=== PATIENT | male | born 1940 | race Two or more races ===

== ENCOUNTER 2020-01-03 20:44 | Inpatient (IN) | payer MEDICARE, OTHER ==
[~2020-01-03] VITALS: Ht 175.3 cm; Wt 67.1 kg
[2020-01-03] MEDS ORDERED: IV NS 0.9% 1,000 ML BAG IV ONE (21:00)
[2020-01-03] MEDS ORDERED: VANCOMYCIN 1 GM in IV D5W 250 ML IV ONE (21:00)
[2020-01-03] MEDS ORDERED: ACETAMINOPHEN 650 MG/SUPP.RECT RC ONE ×2 (21:00→21:19)
[2020-01-03] MEDS ORDERED: MEROPENEM 1,000 MG in IV NS 0.9% 100 ML IV ONE (21:00)
[2020-01-03] MEDS ORDERED: VANCOMYCIN 1 GM VIAL ONE (21:18)
[2020-01-03] MEDS ORDERED: MEROPENEM 1 G VIAL IV ONE (21:18)
[2020-01-03] MEDS ORDERED: ACETAMINOPHEN 325 MG TABLET ONE (21:19)
--- NOTE | 2020-01-03 21:45 | NUR ---
PT [id number]. ALTERED MENTAL STATUS, LETHARGIC, REPORTED DESAT, TACHYPNEIC. 86% ON RA. PT PLACED ON NON REBREATHER MASK 15 L SATTING AT 99%. PT AWAKE, UNABLE TO FOLLOW COMMANDS, NO ACUTE DISTRESS NOTED AT THIS TIME. PT CONNECTED TO HIGH WORKER AND POX
[2020-01-03 21:52] LABS: APPEARANCE,URINE CLOUDY (CLEAR)
[2020-01-03 21:53] LABS: BLOOD, URINE 3+ Ery/uL (NEGATIVE); PH,URINE >8.5 (5.0-8.0); PROTEIN,URINE 3+ mg/dl (NEGATIVE); UGLUCOSE 100 MG/DL mg/dL (NEGATIVE)
[2020-01-03 21:54] LABS: BILIRUBIN,URINE 2+ (NEGATIVE); KETONES,URINE TRACE (NEGATIVE)
[2020-01-03 21:55] LABS: LEUKOCYTE ESTERASE ,URINE 2+ (NEGATIVE); NITRITE, URINE POSITIVE (NEGATIVE); UROBILINOGEN,URINE >8.0 EU/dL (0.2)
[2020-01-03 21:57] LABS: COLOR,URINE RED (YELLOW)
--- NOTE | 2020-01-03 22:00 | NUR ---
CHAPA CATHETER PLACED. URINE COLELCTED AND SENT TO LAB
[2020-01-03 22:01] LABS: BASOPHILS % (AUTO) 0.2 % (0.0-2.0); CALCIUM, SERUM 10.5 mg/dL (8.5-10.1); CARBON DIOXIDE 26 mmol/L (21-32); CHLORIDE 119 mmol/L (98-107); CREATININE 1.3 mg/dL (0.6-1.3); EOSINOPHILS % (AUTO) 0.1 % (0.0-6.0); GLUCOSE 230 mg/dL (74-106); HEMATOCRIT 49 % (39-51); LYMPHOCYTES # (AUTO) 0.5 /CMM (0.8-4.8); MEAN CORPUSCULAR HGB CONC 32 g/dl (31.0-36.0); MEAN CORPUSCULAR VOLUME 104 fL (80-96); MONOCYTES # (AUTO) 0.5 /CMM (0.1-1.30); NEUTROPHILS # (AUTO) 11.5 /CMM (1.8-8.9); NEUTROPHILS % (AUTO) 91.7 % (43.0-81.0); PLATELET COUNT (AUTO) 377 /CMM (150-450); POTASSIUM 4.2 mmol/L (3.5-5.1); RED BLOOD CELL COUNT(AUTO) 4.72 MIL/uL (4.5-6.0); UREA NITROGEN, BLOOD 18 mg/dL (7-18); WHITE BLOOD COUNT (AUTO) 12.6 K/uL (4.3-11.0)
[2020-01-03 22:03] LABS: SODIUM SERUM 157 mmol/L (136-145)
[2020-01-03 22:06] LABS: BACTERIA,URINE None seen /HPF (None Seen); SPERM,URINE Few /HPF (None Seen); SQUAMOUS EPITHELIAL CELL,UR 0-2 /HPF (None Seen)
[2020-01-03 22:08] LABS: BILIRUBIN,DIRECT 0.4 mg/dL (0.0-0.2)
[2020-01-03 22:09] LABS: ALANINE AMINOTRANSFERASE 24 U/L (12-78); ALBUMIN 2.4 g/dL (3.4-5.0); ALKALINE PHOSPHATASE 104 U/L (46-116); ASPARTATE AMINOTRANSFERASE 19 U/L (15-37); TOTAL PROTEIN, SERUM 8.8 g/dL (6.4-8.2)
[2020-01-03 22:11] LABS: HEMOGLOBIN 15.7 g/dL (13.5-17.5)
--- NOTE | 2020-01-03 22:33 | NUR ---
XRAY AT BEDSIDE
[2020-01-03 22:35] LABS: LYMPHOCYTES % (MANUAL) 2 % (16-48); MONOCYTES % (MANUAL) 2 % (0-11.0); NEUTROPHILS % (MANUAL) 96 (42-76)
[2020-01-04] VITALS (46 sets, daily range): BP systolic 82–142; BP diastolic 35–82
--- NOTE | 2020-01-04 00:24 | NUR ---
NORA COLON'S DAUGHTER
[2020-01-04] MEDS ORDERED: ZOLPIDEM TARTRATE 5 MG TABLET PO PRN (01:00)
[2020-01-04] MEDS ORDERED: HYDROCODONE/APAP 5/325MG 1 EACH TABLET PO PRN (01:00)
[2020-01-04] MEDS ORDERED: ONDANSETRON HCL/PF 4 MG/2 ML VIAL IVP PRN (01:00)
[2020-01-04] MEDS ORDERED: MAG HYDROX/AL HYDROX/SIMETH 30 ML UDC PO PRN (01:00)
[2020-01-04] MEDS ORDERED: MAGNESIUM HYDROXIDE 30 ML UDC PO PRN (01:00)
[2020-01-04] MEDS ORDERED: Z GUARD REMEDY 2 OZ OINT TP PRN (01:00)
--- NOTE | 2020-01-04 01:36 | NUR ---
PT TRANSFERRED TO ROOM IN STABLE CONDITION
[2020-01-04] MEDS: IV NS 0.9% 1,000 ML IV SCH ×2 (01:53→11:06)
[2020-01-04] MEDS ORDERED: PIPERACILLIN /TAZOBACTAM 3.375 G VIAL IV ONE (02:03)
[2020-01-04] MEDS: PIPERACILLIN /TAZOBACTAM 3.375 G in IV D5W 50 ML IV SCH ×2 (02:05→06:00)
[2020-01-04] MEDS ORDERED: GLUCERNA 1.2 1,000 ML BOTTLE NG PRN (03:30)
[2020-01-04 04:04] LABS: EOSINOPHILS % (AUTO) 0.1 % (0.0-6.0); LYMPHOCYTES # (AUTO) 0.7 /CMM (0.8-4.8); MONOCYTES # (AUTO) 0.6 /CMM (0.1-1.30)
[2020-01-04] MEDS ORDERED: POTA20TA83 GT (04:05)
[2020-01-04] MEDS ORDERED: DIGO125T GT (04:05)
[2020-01-04] MEDS ORDERED: CRAN425C6 GT (04:05)
[2020-01-04] MEDS ORDERED: BISA-79 RC (04:05)
[2020-01-04] MEDS ORDERED: NA P133E RC (04:05)
[2020-01-04] MEDS ORDERED: LEVE500T9 GT (04:05)
[2020-01-04] MEDS ORDERED: ACET-2605 GT (04:05)
[2020-01-04] MEDS ORDERED: SIMV-49 GT (04:05)
[2020-01-04] MEDS ORDERED: SITA50TA GT (04:05)
[2020-01-04] MEDS ORDERED: ASPI-605 GT (04:05)
[2020-01-04] MEDS ORDERED: SENN1TAB6 GT (04:05)
[2020-01-04] MEDS ORDERED: CHOL1CRY2 GT (04:05)
[2020-01-04] MEDS ORDERED: TAMS-12 GT (04:05)
[2020-01-04] MEDS ORDERED: TYL2T GT (04:05)
[2020-01-04] MEDS ORDERED: [UNRECOGNIZED DRUG - CODE] SQ (04:05)
[2020-01-04] MEDS ORDERED: MAGN24002 GT (04:05)
[2020-01-04] MEDS ORDERED: METO100T14 GT (04:05)
[2020-01-04] MEDS ORDERED: DOCU-141 GT (04:05)
[2020-01-04] MEDS ORDERED: FURO40TA5 GT (04:05)
--- NOTE | 2020-01-04 04:13 | NUR ---
MS/RN CALLED [facility], SPOKE TO MARYBETH HARGROVE, PER BEENA PATIENT'S GT FEEDING WAS WORKING OVER THERE AND THAT THEY WERE USING IT FOR TUBE FEEDING. PER BEENA SHE DOES NOT KNOW ABOUT VACCINATION STATUS OF THE PATIENT THE PATIENT WAS A NEW ADMIT TO THE FACILITY.
--- NOTE | 2020-01-04 04:15 | NUR ---
MS/RN GT FEEDING STARTED AFTER POSITIVE PLACEMENT WAS NOTED.
[2020-01-04 04:26] LABS: BASOPHILS # (AUTO) 0.1 /CMM (0.0-0.2); BASOPHILS % (AUTO) 0.4 % (0.0-2.0); HEMATOCRIT 30 % (39-51); HEMOGLOBIN 9.5 g/dL (13.5-17.5); LYMPHOCYTES % (AUTO) 5.1 % (20.0-44.0); MEAN CORPUSCULAR HGB CONC 32 g/dl (31.0-36.0); MEAN CORPUSCULAR VOLUME 104 fL (80-96); MONOCYTES % (AUTO) 4.9 % (2.0-12.0); NEUTROPHILS # (AUTO) 11.5 /CMM (1.8-8.9); NEUTROPHILS % (AUTO) 89.5 % (43.0-81.0); PLATELET COUNT (AUTO) 423 /CMM (150-450); RED BLOOD CELL COUNT(AUTO) 2.86 MIL/uL (4.5-6.0); WHITE BLOOD COUNT (AUTO) 12.9 K/uL (4.3-11.0)
[2020-01-04] MEDS ORDERED: MAG355OR18 GT (04:30)
[2020-01-04] MEDS ORDERED: CRAN3875 GT (04:30)
[2020-01-04] MEDS ORDERED: ASCO500T21 GT (04:30)
[2020-01-04] MEDS ORDERED: LEVA0.6320 IH (04:30)
[2020-01-04] MEDS ORDERED: MULT1TAB73 GT (04:30)
[2020-01-04] MEDS ORDERED: CALC-7 GT (04:30)
[2020-01-04 04:31] LABS: CALCIUM, SERUM 8.7 mg/dL (8.5-10.1); CARBON DIOXIDE 23 mmol/L (21-32); CHLORIDE 121 mmol/L (98-107); CREATININE 1.4 mg/dL (0.6-1.3); GLUCOSE 266 mg/dL (74-106); MAGNESIUM 2.1 mg/dL (1.8-2.4); PHOSPHORUS 2.2 mg/dL (2.5-4.9); POTASSIUM 3.7 mmol/L (3.5-5.1); UREA NITROGEN, BLOOD 18 mg/dL (7-18)
[2020-01-04 04:34] LABS: CHOLESTEROL 105 mg/dL (<200); HDL CHOLESTEROL 42 mg/dL (40-60); LDL 63 mg/dL (0-99); TRIGLYCERIDES 53 mg/dL (30-150)
[2020-01-04 04:36] LABS: SODIUM SERUM 158 mmol/L (136-145)
--- NOTE | 2020-01-04 05:43 | NUR ---
MS/RN AT 0130, [facility]. PATIENT APPEAR SLEEPING, AROUSABLE BY TACTILE STIMULATION, NON VERBALLY RESPONSIVE, TACHYPNEIC, BP 97/58, HR 105, RR 50, T 101.6, 94% ON 5L NC. MADE COMFORTABLE IN BED, BED BATH DONE. UNABLE TO OBTAIN INFORMATIONS FOR ADMISSION DUE TO PATIENT'S CONDITION. WILL MONITOR.
[2020-01-04] MEDS ORDERED: PIPERACILLIN /TAZOBACTAM 3.375 G in IV D5W 50 ML IV SCH (06:00)
[2020-01-04] MEDS: BLOOD SUGAR DIAGNOSTIC 1 EACH STRIP IN SCH ×4 (06:44→23:42)
--- NOTE | 2020-01-04 07:21 | NUR ---
MS/RN CALLED AND SPOKE TO DR. CRUZ ABOUT THE SEPSIS REASSESSMENT BP 97/658, HR 105, RR 50, T 101.6, O2 SAT 94% AT 5LPM O2, ALSO MENTIONED TO DR. CRUZ THE CRITICAL LABS, NS 158, TROP 0.133, LACTIC ACID 3.9, AND THE LATEST VITAL SIGNS BP 94/54, HR 105, RR 50, T 98.4, O2 SAT 94% AT 5LPM O2. NOR ORDERS RECEIVED. PRESENTLY, PATIENT STILL SLEEPING, APPEAR COMFORTABLE, NO SIGNS OF DISTRESS NOTED, GT FEEDING INFUSING HOB ELEVATED, IVF INFUSING, ALL NEEDS ATTENDED AT THIS TIME, ENDORSED TO NEXT RN FOR YAZMIN.
--- NOTE | 2020-01-04 07:35 | NUR ---
MS/RN CHRIS WAS TOO EARLY AT 0600, DID NOT ADMIN, ENDORSED TO NEXT RN TO F/U WITH THE PHARMACY TO CHANGE ADMIN TIMES.
[2020-01-04] MEDS ORDERED: LEVE100S GT (07:46)
--- NOTE | 2020-01-04 07:50 | NUR ---
MS RN OPENING NOTE PATIENT IN BED RESTING COMFORTABLY. PATIENT BREATHING IS EVEN BUT LABORED. BP IS 87/40, HR 87, TEMPERATURE 100.5, RESPIRATIONS 40-50. NOTIFIED DANIELLE CELESTIN. HOB IS ELEVATED. PATIENT ON OXYGEN NC 5L SATURATING AT 94% SPO2. SAFETY PRECAUTIONS IN PLACE. CHAPA CATHETER HANGING TO GRAVITY DRAINING CLEAR YELLOW FLUID. PATIENT BED IS LOCKED AND IN LOWEST POSITION. CALL LIGHT WITHIN REACH. WILL CONTINUE TO MONITOR.
[2020-01-04] MEDS ORDERED: INSU100V39 SQ ×2 (07:51)
--- NOTE | 2020-01-04 08:10 | NUR ---
MS RN NOTE PATIENT ZOSYN WAS SCHEDULED FOR 0600 AND WAS NONADMIN. PER PAULETTE IN PHARMACY NON ADMIN 0600 ZOSYN AND GIVE 0900 EXTENDED ZOSYN.
[2020-01-04] MEDS ORDERED: IV NS 0.9% 250 ML IV ONE (08:30)
--- NOTE | 2020-01-04 08:30 | NUR ---
MS RN NOTE ORDERS FROM DANIELLE CELESTIN FOR 500 ML NS AND STAT ABGS. WILL CARRY OUT AND FOLLOW THROUGH. DANIELLE MADE AWARE OF LACTIC ACID AND SODIUM LEVELS HIGH. WILL CONTINUE TO MONITOR.
[2020-01-04] MEDS: ACETAMINOPHEN 325 MG TABLET PO PRN ×2 (08:42→16:05)
[2020-01-04] MEDS ORDERED: IV NS 0.9% 500 ML IV ONE (09:00)
--- NOTE | 2020-01-04 09:43 | NUR ---
WOUND CARE CONSULT: PT PRESENTS WITH SCARRING TO SACRAL AREA AND RT SHOULDER, LEFT ANTERIOR THIGH, PRESENT ON ADMISSION. RECOMMENDATIONS MADE FOR SKIN PROTECTION. DISCUSSED WITH NURSING STAFF. FIRST STEP LOW AIRLOSS MATTRESS ON ORDER. WILL SEE PRN. CURRENT DAFNE SCORE IS 12. Addendum: 01/04/20 at 0944 by YEYO ROBLEDO WNDNU Amended: Links added.
[2020-01-04] MEDS: PIPERACILLIN /TAZOBACTAM 3.375 G in IV D5W 100 ML IV SCH ×2 (09:47→17:05)
[2020-01-04 10:00] LABS: ABG BASE EXCESS -5.4 mmol/L; ABG OXYGEN SATURATION 92.8 % (92.0-98.5); ABG PCO2 26.1 mmHg (35.0-45.0); ABG PH 7.437 (7.350-7.450); ABG PO2 65.8 mmHg (75.0-100.0); AaDO2 189.4 mmHg; COHb 0.3 % (0.5-1.5); MetHb 0.4 % (0.0-1.5); O2Hb 92.2 % (94.0-97.0); SITE, ABG Right Radial; VENT MODE, BG NASAL CANNULA
--- NOTE | 2020-01-04 10:09 | NUR ---
MS RN NOTE PATIENT BLOOD PRESSURE 104/58, HR 91. ORDERS FROM DANIELLE CELESTIN TO HAVE PATIENT ON TELE MONITORING. PATIENT READING IS AFIB. WILL CONTINUE TO MONITOR. Addendum: 01/04/20 at 1013 by PRITESH MARTINES RN TEMPERATURE 99.3, TYLENOL WAS ALREADY GIVEN.
--- NOTE | 2020-01-04 11:25 | NUR ---
FORMULA CHECKER NOTE PATIENT IN BED RESTING COMFORTABLY. PATIENT WITH LABORED BREATHING, RESPIRATIONS ARE AT 40 PER MINUTE. PATIENT BP 114/59 AND PATIENT ON CARDIAC MONITORING READING AFIB HR 107. ORDERS FROM DR. GA TO TRANSFER TO ICU. REPORT GIVEN TO BUSINESS TECHNOLOGY ANALYST SANI. DANIELLE CELESTIN MADE AWARE OF PLAN OF CARE AND TRANSFER. DAUGHTER AT THE BEDSIDE. DAUGHTER INFORMED AND MADE WELL AWARE OF PLAN OF CARE. PATIENT CHAPA CATHETER HANGING TO GRAVITY, DRAINING CLEAR YELLOW URINE. PATIENT GTUBE PATENT AND INTACT. PATIENT KEPT CLEAN, DRY AND COMFORTABLE THROUGHOUT SHIFT. PATIENT TURNED AND REPOSITIONED Q2H, AND EXTREMITIES OFFLOADED ON TO PILLOWS. PATIENT BED ALARM IS ON. SAFETY PRECAUTIONS IN PLACE. HOB IS ELEVATED. PATIENT BED IS LOCKED AND IN LOWEST POSITION. CALL LIGHT WITHIN REACH. ENDORSE CARE TO BUSINESS TECHNOLOGY ANALYST FOR YAZMIN.
--- NOTE | 2020-01-04 11:25 | NUR ---
CARDIOLOGY SPECIALIST INITIAL NOTE RECEIVED BEDSIDE REPORT FROM PRITESH Huerta.PATIENT TRANSFERRED TO ICU BECAUSE OF UNCONTROLLED AFIB HR 100-130'S.PATIENT RESPONDING TO PAINFUL STIMULI.ON O2 4L VIA NASAL CANULA.SATURATING 94%.TACHYPNEIC.IV IN R HAND INTACT AND PATENT.MAGAZINE WORKER STUDENT FOR DANIELLE AT BEDSIDE.MADE AWARE PATIENT CONDITION WITH HR AND REQUEST CONSULT FOR .CHAPA CATH DRAINING CLEAR YELLOW URINE.PATIENT IS DNR/ DNI.RECENT POLST IN CHART.SAFETY AND ASPIRATION MEASURES IN PLACE .WILL CONTINUE TO MONITOR.
[2020-01-04 11:32] LABS: BASOPHILS % (AUTO) 0.2 % (0.0-2.0); HEMATOCRIT 41 % (39-51); HEMOGLOBIN 12.9 g/dL (13.5-17.5); LYMPHOCYTES # (AUTO) 0.5 /CMM (0.8-4.8); LYMPHOCYTES % (AUTO) 5.2 % (20.0-44.0); MEAN CORPUSCULAR HGB CONC 31 g/dl (31.0-36.0); MEAN CORPUSCULAR VOLUME 105 fL (80-96); MONOCYTES # (AUTO) 0.4 /CMM (0.1-1.30); NEUTROPHILS # (AUTO) 8.5 /CMM (1.8-8.9); NEUTROPHILS % (AUTO) 90.6 % (43.0-81.0); PLATELET COUNT (AUTO) 291 /CMM (150-450); RED BLOOD CELL COUNT(AUTO) 3.93 MIL/uL (4.5-6.0); WHITE BLOOD COUNT (AUTO) 9.4 K/uL (4.3-11.0)
[2020-01-04 11:39] LABS: CALCIUM, SERUM 8.6 mg/dL (8.5-10.1); CREATININE 1.3 mg/dL (0.6-1.3); POTASSIUM 3.5 mmol/L (3.5-5.1)
[2020-01-04 11:44] LABS: ALBUMIN 1.6 g/dL (3.4-5.0); TOTAL PROTEIN, SERUM 6.4 g/dL (6.4-8.2)
[2020-01-04 12:04] LABS: ABG BASE EXCESS -3.3 mmol/L; ABG OXYGEN SATURATION 90.2 % (92.0-98.5); ABG PCO2 24.8 mmHg (35.0-45.0); ABG PH 7.488 (7.350-7.450); ABG PO2 56.4 mmHg (75.0-100.0); AaDO2 200.3 mmHg; COHb 0.2 % (0.5-1.5); MetHb 0.5 % (0.0-1.5); O2Hb 89.6 % (94.0-97.0); SITE, ABG Left Radial; VENT MODE, BG NASAL CANNULA
[2020-01-04] MEDS ORDERED: FEE PK DOSING 1 MIN EA MC ONE (12:21)
[2020-01-04] MEDS ORDERED: DIGOXIN 0.125 MG TABLET PO ONE (12:29)
[2020-01-04] MEDS ORDERED: INSULIN REGULAR, HUMAN 100 UNIT/ML 3 ML VIAL SQ PRN (12:30)
[2020-01-04] MEDS ORDERED: DEXTROSE 50%-WATER 50 ML DISP.SYRIN IV PRN ×2 (12:30→13:55)
--- NOTE | 2020-01-04 12:30 | NUR ---
DOUGH CUTTER NOTE EKG TAKEN .RELAYED RESULT TO JADE SANTOS AND .GOT NEW ORDER FROM TO CONTINUE DIGOXIN.NNO.CHRONIC AFIB PATIENT RVR DUE TO INCREASED WORK OF BREATHING.
--- NOTE | 2020-01-04 12:40 | NUR ---
RESIDENTIAL CASE MANAGER NOTE SEEN BY BELT GLASS SANDER DANIELLE MADE AWARE ABOUT PATIENT CONDITION WITH LABS.ABG DONE WITH RESULT .GOT NEW ORDERS.SPOKE TO THE FAMILY.ANSWERED ALL QUESTIONS.CONFIRMED CODE STATUS DNR/DNI WITH DAUGHTER.WILL CONTINUE TO MONITOR.AFIB WITH RVR ON MONITOR.
[2020-01-04] MEDS: IV 1/2NS 1000 ML 1,000 ML IV PRN ×2 (12:51→23:37)
[2020-01-04] MEDS: VANCOMYCIN 1 GM in IV D5W 250 ML IV SCH (12:53)
--- NOTE | 2020-01-04 13:30 | NUR ---
SIEVE REPAIRER NOTE SEEN BY .UPDATED ABOUT PATIENT CONDITION.GOT NEW ORDERS.WILL CONTINUE TO MONITOR.
--- NOTE | 2020-01-04 15:10 | NUR ---
ENVIRONMENTAL HEALTH TECHNOLOGIST NOTE RELAYED US RENAL RESULT TO .NNO.WILL CONTINUE TO MONITOR.PATIENT ON HIGH FLOW O2.TOLERATING WELL.
[2020-01-04] MEDS ORDERED: NEUTRA PHOS 1 POWD.PACKET GT ONE (15:30)
[2020-01-04] MEDS: INSULIN REGULAR, HUMAN 100 UNIT/ML 3 ML VIAL SQ PRN ×2 (17:14→23:44)
[2020-01-04] MEDS ORDERED: BLOOD SUGAR DIAGNOSTIC 1 EACH STRIP IN SCH (17:30)
--- NOTE | 2020-01-04 18:27 | NUR ---
ETHYL BLENDER NOTE PUBLIC HEALTH DANIELLE MADE AWARE ABOUT PATIENT STILL TACHYPNEIC.ON HIGH FLOW 50%.SATURATING 95%.MADE AWARE ABOUT TROPONIN LEVEL0.183.NNO.WILL CONTINUE TO MONITOR.
--- NOTE | 2020-01-04 19:31 | NUR ---
ACADEMIC TUTOR CLOSING NOTE PATIENT IN BED .LETHARGIC.ON TELE MONITOR AFIB HR 90'S-130'S.PATIENT RESPONDING TO PAINFUL STIMULI.ON HIGH FLOW O2 50%.SATURATING 95%.TACHYPNEIC.IV IN R AND L HAND INTACT AND PATENT.CHAPA CATH DRAINING CLEAR YELLOW URINE.PATIENT IS DNR/ DNI.SAFETY AND ASPIRATION MEASURES IN PLACE .ENDORSED TO PM NURSE FOR YAZMIN.
--- NOTE | 2020-01-04 19:45 | NUR ---
RN NOTES RECEIVED PT ON BED, FAMILY AT BEDSIDE. PT IS , RESPONDING TO TACTILE STIMULI. LETHARGIC. TACHYPNEIC 40- 50'S, AFIB HR 142 ON TELE MONITOR.ON HIGH FLOW O2 50%. SATURATION 95%. GTF HELD DUE TO HIGH RESIDUAL PER PREV. SHIFT. WITH ZERO RESIDUAL AT THIS TIME INTACT AND PATENT. GTF STARTED ORDERED. IV IN R AND L HAND INTACT AND PATENT RUNNING WITH 1/2 NS @ 100 ML/HR TOLERATED WELL. PT HAS CHAPA CATH DRAINING CLEAR YELLOW URINE. BAG KEPT OFF FROM THE FLOOR. KEPT HOB ELEVATED. TURNED AND REPOSITIONED FOR SKIN SAFETY. NURSING CARE PROVIDED. WILL CLOSELY MONITOR.
[2020-01-04 20:59] LABS: OCCULT BLOOD STOOL NEGATIVE (NEGATIVE)
[2020-01-05] VITALS (47 sets, daily range): BP systolic 80–127; BP diastolic 45–84
[2020-01-05] MEDS: PIPERACILLIN /TAZOBACTAM 3.375 G in IV D5W 100 ML IV SCH ×3 (00:41→17:31)
--- NOTE | 2020-01-05 02:30 | NUR ---
RN NOTES CALLED AND INFORMED DR. LIMON REGARDING PATIENT TACHYPNEIC HR 50-60'S PER DNP TO GIVE MORPHINE 1 MG IVP Q4H PRN NOTED AND CARRIED OUT ORDER.
[2020-01-05 04:44] LABS: BASOPHILS % (AUTO) 0.3 % (0.0-2.0); EOSINOPHILS % (AUTO) 0.1 % (0.0-6.0); HEMATOCRIT 40 % (39-51); HEMOGLOBIN 12.9 g/dL (13.5-17.5); LYMPHOCYTES # (AUTO) 0.4 /CMM (0.8-4.8); LYMPHOCYTES % (AUTO) 5.7 % (20.0-44.0); MEAN CORPUSCULAR HGB CONC 32 g/dl (31.0-36.0); MEAN CORPUSCULAR VOLUME 104 fL (80-96); MONOCYTES # (AUTO) 0.2 /CMM (0.1-1.30); MONOCYTES % (AUTO) 3.4 % (2.0-12.0); NEUTROPHILS # (AUTO) 6.5 /CMM (1.8-8.9); NEUTROPHILS % (AUTO) 90.5 % (43.0-81.0); PLATELET COUNT (AUTO) 262 /CMM (150-450); RED BLOOD CELL COUNT(AUTO) 3.82 MIL/uL (4.5-6.0); WHITE BLOOD COUNT (AUTO) 7.1 K/uL (4.3-11.0)
[2020-01-05 04:59] LABS: ALBUMIN 1.6 g/dL (3.4-5.0); BILIRUBIN,TOTAL 0.9 mg/dL (0.2-1.0); CALCIUM, SERUM 8.9 mg/dL (8.5-10.1); CREATININE 1.2 mg/dL (0.6-1.3); MAGNESIUM 2.1 mg/dL (1.8-2.4); PHOSPHORUS 2.4 mg/dL (2.5-4.9); POTASSIUM 3.3 mmol/L (3.5-5.1); TOTAL PROTEIN, SERUM 6.4 g/dL (6.4-8.2)
[2020-01-05] MEDS: BLOOD SUGAR DIAGNOSTIC 1 EACH STRIP IN SCH ×3 (05:11→17:31)
[2020-01-05] MEDS: MORPHINE SULFATE INJ 2 MG/ML DISP.SYRIN IV PRN ×2 (05:11→09:34)
[2020-01-05] MEDS: INSULIN REGULAR, HUMAN 100 UNIT/ML 3 ML VIAL SQ PRN ×2 (05:19→12:45)
[2020-01-05] MEDS: VANCOMYCIN 1 GM in IV D5W 250 ML IV SCH (06:30)
--- NOTE | 2020-01-05 06:39 | NUR ---
RN NOTES PT REMAINED LETHARGIC RESPONSIVE TO PAIN, TACHYPNEIC , AFIB UNCONTROLLED. CONTINUE WITH HI FLOW O2 @ 50LPM. GTF RESTARTED @ 4AM AND TOLERATED WELL WITHOUT RESIDUAL PRESENT. IVF 1/2 NS ONGOING 100ML/HR. BS COVERED WITH INSULIN EFFECTIVE. KEPT PT CLEAN AND DRY. SKIN CARE PROVIDED. OFFLOADED EXT WITH PILLOWS. KEPT HOB ELEVATED. WILL ENDORSED CONTINUITY OF CARE TO AM NURSE.
--- NOTE | 2020-01-05 07:30 | NUR ---
TEACHER HEARING IMPAIRED OPENING NOTE RECEIVED REPORT FROM PM NURSE.PATIENT IN BED .LETHARGIC.ON TELE MONITOR AFIB HR 90'S-120'S.PATIENT RESPONDING TO PAINFUL STIMULI.ON HIGH FLOW O2 50%.SATURATING 97%.TACHYPNEIC RR40-50'S.IV IN R AND L HAND INTACT AND PATENT.CHAPA CATH DRAINING CLEAR YELLOW URINE.SAFETY AND ASPIRATION MEASURES IN PLACE .WILL CONTINUE TO MONITOR.
[2020-01-05] MEDS: POTASSIUM CHLORIDE 20 MEQ POWDER PACKET GT SCH ×3 (08:19→11:12)
[2020-01-05 08:30] LABS: ABG BASE EXCESS -3.3 mmol/L; ABG OXYGEN SATURATION 95.6 % (92.0-98.5); ABG PCO2 22.8 mmHg (35.0-45.0); ABG PH 7.511 (7.350-7.450); AaDO2 251.9 mmHg; COHb 0.3 % (0.5-1.5); MetHb 0.4 % (0.0-1.5); O2Hb 94.9 % (94.0-97.0); SITE, ABG Right Radial; VENT MODE, BG 60L 50% HFNC
--- NOTE | 2020-01-05 08:48 | NUR ---
PUMP SERVICER HELPER NOTE PATIENT STILL TACHYPNEIC .ABG DONE RELAYED RESULT TO .NNO.WILL CONTINUE TO MONITOR.
[2020-01-05] MEDS: ACETAMINOPHEN 325 MG TABLET PO PRN (08:54)
[2020-01-05] MEDS ORDERED: DIGOXIN 0.125 MG TABLET GT SCH (09:00)
[2020-01-05] MEDS: IV 1/2NS 1000 ML 1,000 ML IV PRN ×2 (11:11→22:17)
--- NOTE | 2020-01-05 11:14 | NUR ---
LAND SURVEYOR MANAGER NOTE SEEN BY ,UPDATED ABOUT PATIENT CONDITION WITH LABS.PATIENT MORE LETHARGIC .GOT NEW ORDERS FOR CT HEAD WITHOUT CONTRAST.PATIENT HAS PAIN WHILE GIVING MEDS THROUGH GT.HAS RESIDUAL >100ML.HOLDING FEEDING NOW.GOT NEW ORDER FOR KUB FOR VERIFICATION OF GT PLACEMENT.SPOKE TO SON AT BEDSIDE.ANSWERED ALL QUESTIONS BY .EXPLAINED PROGNOSIS.WILL CONTINUE TO MONITOR.
[2020-01-05] MEDS ORDERED: DIATR MEGLU/DIATRIZOATE SODIUM 30 ML BOTTLE (GASTROGRAPHIN) ONE (11:52)
[2020-01-05] MEDS: POTASSIUM PHOSPHATE MM 5 MMOL in IV D5W 100 ML IV SCH ×2 (12:16→14:37)
--- NOTE | 2020-01-05 13:35 | NUR ---
PROVIDER ENROLLMENT SPECIALIST NOTE DR CHILDS MADE AWREA ABOUT PATIENT KUB RESULT. PER RADIOLOGIST RECOMMENDING FLUOROSCOPY.UNABLE TO DETERMINE GT POSITION.GOT NEW ORDER FOR FLUOROSCOPY.WILL CONTINUE TO MONITOR.
--- NOTE | 2020-01-05 13:51 | NUR ---
REGISTRY NURSE NOTE GOT CALL FROM RADIOLOGY.MADE AWARE THAT OUR RADIOLOGIST SUGGESTING FOR TO DO CT ABDOMEN WITHOUT CONTRAST. MADE AWARE.GOT NEW ORDER TO DO CT ABDOMEN WITH PELVIS AND D/C FLUOROSCOPY.WILL CONTINUE TO MONITOR.
[2020-01-05] MEDS ORDERED: IV NS 0.9% 500 ML IV PRN (14:00)
--- NOTE | 2020-01-05 15:36 | NUR ---
REFRIGERATOR CRATER LYLA GOT CALL FROM [facility].PATIENT POSITIVE FOR MRSA NARES. MADE AWARE.GOT NEW ORDERS.PLACED ON CONTACT ISOLATION.
--- NOTE | 2020-01-05 17:00 | NUR ---
CAPTAIN FISHING VESSEL NOTE PATIENT TAKEN OUT FOR CT SCAN WITH ACLS PROTOCOL .RETURNED TO UNIT BY 1650.IN SAME CONDITION.WILL CONTINUE TO MONITOR.
--- NOTE | 2020-01-05 17:31 | NUR ---
STONE DECORATOR NOTE INSULIN NOT ADMINISTERED BECAUSE OF GT FEEDING ON HOLD.
--- NOTE | 2020-01-05 17:50 | NUR ---
MENTAL HEALTH TECH NOTE GOT CALL FROM RADIOLOGY.SPOKE TO RADIOLOGIST TOLD THAT PATIENT GT IS MISPLACED.RELAYED RESULT TO .GOT NEW ORDER FOR SURGERY CONSULT,NPO.KEEP PATIENT IN SAME IVF.LEFT MESSAGE TO ABOUT NEW CONSULT.WILL CONTINUE TO MONITOR.
--- NOTE | 2020-01-05 19:14 | NUR ---
LUNG PULLER NOTE SPOKE TO .RELAYED CT ABDOMEN RESULT.GOT NEW ORDER TO REMOVE G TUBE.GT REMOVED.APPLIED PRESSURE DRESSING.NO DRAINAGE NOTED.WILL CONTINUE TO MONITOR.
--- NOTE | 2020-01-05 19:25 | NUR ---
ASSISTANT PROPERTY MANAGER CLOSING NOTE PATIENT IS STILL LETHARGIC.ON MONITOR AFIB WITH RVR.TACHYPNEIC.GT TAKEN PER ORDER.ENDORSED TO PM NURSE FOR YAZMIN.
--- NOTE | 2020-01-05 19:25 | NUR ---
RN NOTES RECEIVED A CALL FROM RADIOLOGY DANIELLE AND SPOKE TO DR. MALONE VERBALIZING VIA PHONE THAT THE PATIENT CTA CHEST, ABD AND PELVIS RESULT WAS RIGHT SIDED PULM. EMBOLI AND SLIGHTLY INCREASING VOL. OF INTRAPERITONEAL HEMORRHAGE AND TO INFORM HOSPITALIST REGARDING THIS. Addendum: 01/06/20 at 0222 by JAYMIE HILTON RN WRONG PATIENT..
--- NOTE | 2020-01-05 19:30 | NUR ---
RN NOTES 1924 PM - RECEIVED A CALL FROM DR. PEREIRA TO GET A CONSENT FROM THE FAMILY/RESP. LIBERTARIAN FOR PATIENT FOR LAPAROTOMY AND REPLACEMENT OF GT
--- NOTE | 2020-01-05 19:30 | NUR ---
RN NOTES RECEIVED PT EYES OPEN WITH HI FLOW METER @ 50LPM VIA NC PT IS NON VERBAL BUR RESPONSIVE TO APIN. AFIB ON TELE MONITOR. GT REMOVED BY MORNING SHIFT PER MD ORDERED. IV SITE ON RIGHT HAND AND LT HAND RUNNING WITH 1/2 NS @ 100ML/HR AND WITH ONGOING ZOSYN @ 25 ML/HR. WTIH LOW GRADE FEVER OF 100.5 DEG FHARENHEIGHT. COOLING MEASURES PROVIDED. TURNED AND REPOSITIONED . HOB KEPT ELEVATED.
[2020-01-05] MEDS: MUPIROCIN OINT 2% 22 GM TUBE SCH ×2 (21:00→22:04)
[2020-01-06] VITALS (29 sets, daily range): BP systolic 95–142; BP diastolic 55–87
--- NOTE | 2020-01-06 | NUR ---
RN NOTES CALLED JESSE PENA (DAUGHTER) TO GET CONSENT FOR EXLAPAROTOMY AND GT REPLACEMENT BUT UNABLE TO REACH THE PATIENT DAUGHTER.
[2020-01-06] MEDS: VANCOMYCIN 1 GM in IV D5W 250 ML IV SCH ×2 (00:20→19:30)
[2020-01-06] MEDS: BLOOD SUGAR DIAGNOSTIC 1 EACH STRIP IN SCH ×4 (00:20→17:34)
[2020-01-06] MEDS: PIPERACILLIN /TAZOBACTAM 3.375 G in IV D5W 100 ML IV SCH ×3 (00:20→17:34)
--- NOTE | 2020-01-06 00:30 | NUR ---
RN NOTES BS 240 MG/DL. INSULIN IS NOT GIVEN , PT IS NPO AND GT WAS REMOVED
[2020-01-06 04:45] LABS: BASOPHILS % (AUTO) 0.2 % (0.0-2.0); EOSINOPHILS % (AUTO) 0.2 % (0.0-6.0); HEMATOCRIT 36 % (39-51); HEMOGLOBIN 11.7 g/dL (13.5-17.5); LYMPHOCYTES # (AUTO) 0.3 /CMM (0.8-4.8); LYMPHOCYTES % (AUTO) 4.5 % (20.0-44.0); MEAN CORPUSCULAR HGB CONC 33 g/dl (31.0-36.0); MEAN CORPUSCULAR VOLUME 103 fL (80-96); MONOCYTES # (AUTO) 0.3 /CMM (0.1-1.30); MONOCYTES % (AUTO) 3.8 % (2.0-12.0); NEUTROPHILS # (AUTO) 6.3 /CMM (1.8-8.9); NEUTROPHILS % (AUTO) 91.3 % (43.0-81.0); PLATELET COUNT (AUTO) 216 /CMM (150-450); RED BLOOD CELL COUNT(AUTO) 3.44 MIL/uL (4.5-6.0); WHITE BLOOD COUNT (AUTO) 6.9 K/uL (4.3-11.0)
[2020-01-06 05:07] LABS: BILIRUBIN,TOTAL 0.9 mg/dL (0.2-1.0); CALCIUM, SERUM 8.6 mg/dL (8.5-10.1); CREATININE 1.1 mg/dL (0.6-1.3); MAGNESIUM 2.2 mg/dL (1.8-2.4); PHOSPHORUS 2.8 mg/dL (2.5-4.9); TOTAL PROTEIN, SERUM 6.1 g/dL (6.4-8.2)
[2020-01-06 05:29] LABS: ALBUMIN 1.3 g/dL (3.4-5.0)
--- NOTE | 2020-01-06 07:20 | NUR ---
RN NOTES PATIENT REMAINED THE SAME CONTINUE ON HI FLOW 02 @ 50 LPM VIA NC. TOLERATED WELL. TACHYPNEIC AND AFIB UNCONTROLLED ON MONITOR. DENIES PAIN WHEN ASKED. PT NODS ON QUESTION YES OR NO. STILL TRYING TO CALL FAMILY/RESP/ LIBERTARIAN TO GET CONSENT FOR EXAP AND GT REPLACEMENT. ENDORSED CONTINUITY OF CARE TO AM NURSE. NO SIGNIFICANT YAZMIN THROUGHOUT THE SHIFT.
--- NOTE | 2020-01-06 07:30 | NUR ---
RN NOTES RECEIVED PATIENT IN BED, LETHARGIC. TACHYPNEIC [id number]. WITH LABORED BREATHING, ACCESSORY MUSCLE ON BREATHING. ON HIGH FLOW OXYGEN AT 50LPM AT 60% FIO2. UNCONTROLLED AFIB HR 90'S-160s. PATIENT RESPONDING TO PAINFUL STIMULI. IV IN R AND L HAND INTACT BUT BOTH INFILTRATED- WILL REINSERT. CHAPA CATH DRAINING CLEAR YELLOW URINE. HOB KEPT ELVATED. ASPIRATION PRECAUTION AND SAFETY MEASURES IN PLACE . WILL CONTINUE TO MONITOR ACCORDINGLY.
--- NOTE | 2020-01-06 07:35 | NUR ---
RN NOTES SPOKE TO DR. PEREIRA, ASKING IF CONSENT WAS OBTAINED FOR THE EX LAP AND GT PLACEMENT SCHEDULE FOR TODAY, INFORMED MD THAT NO FAMILY WAS REACHED LAST NIGHT THUS NO CONSENT WAS OBTAINED. PER THE MD, HE MIGHT DO THE EMERGENCY CONSENT INSTEAD. I TOLD THE MD THAT I WILL TRY TO REACH THE PATIENT. MEANWHILE, DOCTOR ASKED FOR CHAPA TO BE INSERTED AND OBTAIN XRAY OF THE ABDOMEN WITH CONTRAST. ORDERS ACKNOWLEDGE AND CARRIED OUT.
[2020-01-06] MEDS ORDERED: DIATR MEGLU/DIATRIZOATE SODIUM 30 ML BOTTLE (GASTROGRAPHIN) ONE (07:58)
--- NOTE | 2020-01-06 08:00 | NUR ---
RN NOTES AT THE UNIT. HAS VERBALIZED THAT HE WONT BE AGGRESSIVE ON PERFORMING THE SUPPOSED PROCEDURE TO THE PATIENT SINCE PATIENT IS ON DNR/DNI STATUS UNLESS THE CODE STATUS IS CHANGED. CALLED [facility] TO OBTAINED CONTACT DETAILS FOR THE PATIENT. ALSO LEFT MESSAGE AT 'S VOICEMAIL.
[2020-01-06] MEDS: MUPIROCIN OINT 2% 22 GM TUBE SCH ×3 (09:00→20:38)
--- NOTE | 2020-01-06 10:30 | NUR ---
RN NOTES DAUGHTER AT THE UNIT. UPDATED ON THE PATIENT'S CONDITION
[2020-01-06 12:07] LABS: *SPE A/G RATIO 0.5 (0.7-1.7); *SPE ALBUMIN 1.8 g/dL (2.9-4.4); *SPE ALPHA-1-GLOBULIN 0.5 g/dL (0.0-0.4); *SPE BETA GLOBULIN 1.2 g/dL (0.7-1.3); *SPE GLOBULIN, TOTAL 3.7 g/dL (2.2-3.9); *SPE M-SPIKE Not Observed g/dL (Not Observed)
[2020-01-06] MEDS: IV 1/2NS 1000 ML 1,000 ML IV PRN (12:59)
[2020-01-06] MEDS ORDERED: DIGOXIN 0.125 MG TABLET GT SCH (13:00)
[2020-01-06 13:07] LABS: PTH, INTACT 12 pg/mL (15-65)
--- NOTE | 2020-01-06 15:00 | NUR ---
RN NOTES SON AT BEDSIDE, UPDATED AND MADE AWARE OF THE CURRENT SITUATION. SON WITH QUESTIONS. "WOULD THE DOCTOR DO THE PROCEDURE IF WE CHANGE OUR DECISION ABOUT INTUBATION?" CONCERNS RELAYED TO THE DOCTOR, WHO RESPONDED THAT HE IS NOT PURSUING THE OPERATION REGARDLESS OF THE CODE STATUS, AND THAT HE IS OKAY IF FAMILY ASK FOR SECOND OPINION. SON, MADE AWARE OF THE DOCTORS RESPONSE.
--- NOTE | 2020-01-06 15:30 | NUR ---
RN NOTES REPORT GIVEN TO MARYBETH IQBAL FOR CONTINUITY OF CARE
--- NOTE | 2020-01-06 16:00 | NUR ---
RN NOTES PATIENT TRANSFERRED TO ROOM 310-2 VIA ACLS PROTOCOL. SPOKE TO THE SON AT THE UNIT, REQUEST TO TALK TO THE MD RELAYED TO DR. CHILDS
--- NOTE | 2020-01-06 16:30 | NUR ---
TELE/RN NOTE Patient received from Manju RN; transfer from ICU. Patient is on-verbal, open eyes and responds to name and touch. IV line is clean and intact running 1/2 NS @100ml/hour. Vital signs 107/56, HR 120, O2 98% on high-flow oxygen 40L, 45%, T 100.7. Patient has labored breathing, shallow, tachypneic RR of 50 breaths/min. Family is at the bedside. Bed is in lowest position, side rails x3 in upright position, safety and aspiration precautions enforced. Will continue with plan of care.
--- NOTE | 2020-01-06 17:29 | NUR ---
MS/RN NOTE MD contacted. Orders received to change patient to Med-Surg status and to be taken off high flow O2 and changed to 15L non-rebreather mask.
--- NOTE | 2020-01-06 17:58 | NUR ---
MS/RN NOTE Blood sugar 275. No coverage due to NPO status.
[2020-01-06] MEDS: MORPHINE SULFATE INJ 2 MG/ML DISP.SYRIN IV PRN (18:48)
--- NOTE | 2020-01-06 19:34 | NUR ---
MS/RN OPENING NOTES: Received patient non-verbal, open eyes and responds to name and touch. IV line is clean and intact running 1/2 NS @100ml/hour. Patient has non-labored breathing. Patient kept comfortable at this time. Family is present at the bedside. Bed is in lowest position, side rails x3 in upright position, safety and aspiration precautions enforced. Will continue monitoring patient accordingly.
--- NOTE | 2020-01-06 19:56 | NUR ---
TELE/RN CLOSING NOTE Patient is on-verbal, open eyes and responds to name and touch. IV line is clean and intact running 1/2 NS @100ml/hour. Patient has RR of 50, saturating 98% on 15L non-rebreather mask. All patient needs met, all due meds given. Family is at the bedside. Bed is in lowest position, side rails x3 in upright position, safety and aspiration precautions enforced. Will endorse to legal support analyst.
[2020-01-07] VITALS (28 sets, daily range): BP systolic 48–124; BP diastolic 20–76
[2020-01-07] MEDS: BLOOD SUGAR DIAGNOSTIC 1 EACH STRIP IN SCH ×2 (00:13→06:30)
[2020-01-07] MEDS: INSULIN REGULAR, HUMAN 100 UNIT/ML 3 ML VIAL SQ PRN ×2 (00:14→06:32)
--- NOTE | 2020-01-07 00:15 | NUR ---
MS/RN NOTES: PATIENT'S BLOOD SUGAR CHECK AT 0000 IS 250. DID NOT ADMINISTER INSULIN BECAUSE PATIENT IS NPO.
[2020-01-07] MEDS: PIPERACILLIN /TAZOBACTAM 3.375 G in IV D5W 100 ML IV SCH ×2 (00:32→09:25)
[2020-01-07] MEDS: MORPHINE SULFATE INJ 2 MG/ML DISP.SYRIN IV PRN (02:38)
--- NOTE | 2020-01-07 02:40 | NUR ---
MS/RN NOTES: PATIENT HAS LABORED AND SHALLOW BREATHING, ASSESSED FLACC PAIN SCALE, FACIAL GRIMACING, AND MOANING, JERKING. VS WNL, BP: 117/75 HR: 96. ADMINISTERED MORPHINE 2MG IV. PATIENT IS STABLE AT THIS TIME. WITH NON REBREATHER MASK, 15L OXYGEN, SATURATING AT 97%. WILL CONTINUE TO MONITOR.
[2020-01-07] MEDS ORDERED: DIGOXIN INJ 0.5 MG/2 ML AMPUL IV ONE (04:00)
--- NOTE | 2020-01-07 04:05 | NUR ---
MS/RN NOTES: 0350: CALLED DR. LIMON REGARDING PATIENT'S CONDITION. MADE AWARE OF PATIENT'S CONDITION. BP: 107/62, HR: 13-140. ORDERED DIGOXIN 0.125MG IV PUSH ONCE. 0404: PRE-DIGOXIN BP: 100/50 HR: 143 0406: ADMINISTERING IV DIGOXIN SLOWLY. BP: 87/55 HR: 110 0409: DONE ADMINISTERING IV PUSH DIGOXIN. BP: 90/55 HR: 105. PATIENT IS STABLE AT THIS TIME. ON 15L OF OXYGEN VIA NON REBREATHER. LABORED BREATHING, RR: 42. WILL CONTINUE MONITORING PT. ACCORDINGLY.
[2020-01-07] MEDS: IV 1/2NS 1000 ML 1,000 ML IV PRN ×2 (05:44→08:27)
--- NOTE | 2020-01-07 06:23 | NUR ---
MS/RN NOTES: CALLED FAMILY REGARDING PATIENT'S CONDITION. VS NOT WNL. BP: 60/49. HR: 96 O2SAT: 84%. PER FAMILY, SON WILL COME TO [facility]. #[phone].
--- NOTE | 2020-01-07 06:29 | NUR ---
MS/RN NOTES: DR. LIMON MADE AWARE OF PATIENT'S CONDITION, PER DR "CONTINUE MONITORING VS". WILL CONTINUE MONITORING PT. ACCORDINGLY.
--- NOTE | 2020-01-07 06:44 | NUR ---
ms/rn notes: DR KRUEGER AWARE OF PATIENT DETERIORATING AND THE FAMILY'S PLAN.
--- NOTE | 2020-01-07 06:46 | NUR ---
MS/RN NOTES: PATIENT WILL BE TRANSFERRED TO ICU. DR KRUEGER TALKED TO PATIENT'S SON.
--- NOTE | 2020-01-07 07:12 | NUR ---
MS/RN NOTES: DR. KRUEGER TALKED TO THE PATIENT'S FAMILY REGARDING THE SITUATION. FAMILY AWARE AND AGREED TO TRANSFER PT TO ICU. PATIENT WAS TRANSFERRED TO ICU VIA GURNEY UNDER ACLS PROTOCOL WITH OXYGEN 15L VIA NO REBREATHER. REPORT GIVEN TO PEG BERMUDEZ FOR YAZMIN.
[2020-01-07] MEDS ORDERED: PHENYLEPHRINE 80 MG in IV D5W 250 ML IV PRN (07:30)
[2020-01-07 07:34] LABS: ABG BASE EXCESS -12.9 mmol/L; ABG OXYGEN SATURATION 83.4 % (92.0-98.5); ABG PCO2 101.2 mmHg (35.0-45.0); ABG PH 6.933 (7.350-7.450); ABG PO2 70.4 mmHg (75.0-100.0); AaDO2 541.4 mmHg; COHb 0.3 % (0.5-1.5); MetHb 0.6 % (0.0-1.5); O2Hb 82.6 % (94.0-97.0); SITE, ABG Right Brachial; VENT MODE, BG nrb
--- NOTE | 2020-01-07 07:42 | NUR ---
RT NOTE Pt Rec'd on NRB mask at 15LPM. Pt showed signs of resp distress. Pt placed on Bipap per md orders. Alarms are set and audible. Ambu bag bedside. Bipap plugged into red outlet. Will continue to monitor. Addendum: 01/07/20 at 0744 by PRESTON SHAH RT Amended: Links added.
--- NOTE | 2020-01-07 07:45 | NUR ---
rn note pt sob, on nrb ask, rr 35-40, saturation 85%, laboured breathing afebrile, sbp in 90s, hr 135-140 afib, pulse non-plapable on the wrists, per report pt to be started on neosynephrine drip. family at bedside. pending abg to be drawn and to place pt on bipap, code status dnr/dni. dr Choudhary at bedside, discussing care with son. will carry out orders.
[2020-01-07 08:24] LABS: BASOPHILS % (AUTO) 0.1 % (0.0-2.0); EOSINOPHILS % (AUTO) 0.3 % (0.0-6.0); HEMATOCRIT 40 % (39-51); HEMOGLOBIN 11.8 g/dL (13.5-17.5); LYMPHOCYTES # (AUTO) 0.5 /CMM (0.8-4.8); LYMPHOCYTES % (AUTO) 7.9 % (20.0-44.0); MEAN CORPUSCULAR HGB CONC 29 g/dl (31.0-36.0); MEAN CORPUSCULAR VOLUME 112 fL (80-96); MONOCYTES # (AUTO) 0.1 /CMM (0.1-1.30); MONOCYTES % (AUTO) 2.5 % (2.0-12.0); NEUTROPHILS # (AUTO) 5.3 /CMM (1.8-8.9); NEUTROPHILS % (AUTO) 89.2 % (43.0-81.0); PLATELET COUNT (AUTO) 201 /CMM (150-450); WHITE BLOOD COUNT (AUTO) 5.9 K/uL (4.3-11.0)
[2020-01-07 08:38] LABS: ALANINE AMINOTRANSFERASE 14 U/L (12-78); ALKALINE PHOSPHATASE 78 U/L (46-116); ASPARTATE AMINOTRANSFERASE 45 U/L (15-37); BILIRUBIN,TOTAL 0.7 mg/dL (0.2-1.0); CALCIUM, SERUM 8.8 mg/dL (8.5-10.1); CARBON DIOXIDE 23 mmol/L (21-32); CHLORIDE 123 mmol/L (98-107); CREATININE 1.7 mg/dL (0.6-1.3); GLUCOSE 291 mg/dL (74-106); MAGNESIUM 2.8 mg/dL (1.8-2.4); POTASSIUM 4.8 mmol/L (3.5-5.1); TOTAL PROTEIN, SERUM 6.2 g/dL (6.4-8.2); UREA NITROGEN, BLOOD 25 mg/dL (7-18)
[2020-01-07 08:49] LABS: SODIUM SERUM 158 mmol/L (136-145)
[2020-01-07 08:51] LABS: ALBUMIN 1.2 g/dL (3.4-5.0); PHOSPHORUS 8.8 mg/dL (2.5-4.9)
[2020-01-07] MEDS: MUPIROCIN OINT 2% 22 GM TUBE SCH (09:00)
--- NOTE | 2020-01-07 09:00 | NUR ---
rn note Bactroban not applied to nostrils, pt on bipap and in critical condition.
[2020-01-07 09:15] LABS: BAND % (MANUAL) 14 % (0.0-5.0)
[2020-01-07 09:16] LABS: LYMPHOCYTES % (MANUAL) 5 % (16-48); MONOCYTES % (MANUAL) 2 % (0-11.0); NEUTROPHILS % (MANUAL) 79 (42-76)
--- NOTE | 2020-01-07 09:24 | NUR ---
rn note Professor Of Business Administration at bedside with pt's daughter.
--- NOTE | 2020-01-07 11:15 | NUR ---
RN NOTE PER DAUGHTER JESSE FAMILY HAS DECIDED TO DO COMFORT MEASURES FOR THE PT NOW. DR CHILDS NOTIFIED. PENDING ORDERS.
--- NOTE | 2020-01-07 13:05 | NUR ---
PATIENT ASYSTOLE ON MONITOR. NO PALPABLE PULSES. NO HEART TONE. NO SPONTANEOUS RESPIRATION. PUPILS FIXED AND DILATED. FAMILY AT BEDSIDE. PATIENT IS ON COMFORT MEASURES.
--- NOTE | 2020-01-07 13:38 | NUR ---
rn note pt at 1304, dr Riley notified, supervisor last model department notified, admitting office notified, family at bedside.
--- NOTE | 2020-01-07 13:49 | NUR ---
rn note spoke with [employer] school admissions representative Karime, , per Karime, the manager drug will follow up for further evaluation.
--- NOTE | 2020-01-07 14:15 | NUR ---
rn note received a call from [employer] from [facility]ado pt not a candidate, referral number is [id number].
--- NOTE | 2020-01-07 16:00 | NUR ---
rn note pt's body escorted with security guards to morgue downstairs. papers signed by son, and papers left with workers compensation claims supervisor, Stormy.
== END 2020-01-07 13:04 | disposition expired | DRG 871 ==
LOC: ER 20:46 → TELE 01-04 00:44 → MED 01-04 01:25 → ICU 01-04 10:59 → TELE 01-06 16:23 → MED 01-06 17:00 → ICU 01-07 06:53
PROVIDERS: ADMIT Registered Nurse; ATTEND Student in an Organized Health Care Education/Training Program
PROC: 5A09357 Assistance with Respiratory Ventilation, Less than 24 Consecutive Hours, Continuous Positive Airway Pressure (ICD-10-PCS; principal; 2020-01-07)
DX: A41.9 Sepsis, unspecified organism (principal); R65.21 Severe sepsis with septic shock; J18.9 Pneumonia, unspecified organism; J96.01 Acute respiratory failure with hypoxia; I21.A1 Myocardial infarction type 2; G92 Toxic encephalopathy; N17.0 Acute kidney failure with tubular necrosis; E43 Unspecified severe protein-calorie malnutrition; I61.9 Nontraumatic intracerebral hemorrhage, unspecified; E87.0 Hyperosmolality and hypernatremia; E87.2 Acidosis; N39.0 Urinary tract infection, site not specified; D68.69 Other thrombophilia; Z43.1 Encounter for attention to gastrostomy; Z51.5 Encounter for palliative care; E86.0 Dehydration; E11.65 Type 2 diabetes mellitus with hyperglycemia; E83.39 Other disorders of phosphorus metabolism; E87.8 Other disorders of electrolyte and fluid balance, not elsewhere classified; R13.10 Dysphagia, unspecified; Z66 Do not resuscitate; G40.909 Epilepsy, unspecified, not intractable, without status epilepticus; D53.9 Nutritional anemia, unspecified; I48.91 Unspecified atrial fibrillation; Z86.73 Personal history of transient ischemic attack (TIA), and cerebral infarction without residual deficits; Z95.0 Presence of cardiac pacemaker; D64.9 Anemia, unspecified; E88.09 Other disorders of plasma-protein metabolism, not elsewhere classified; F09 Unspecified mental disorder due to known physiological condition; E78.5 Hyperlipidemia, unspecified; E87.6 Hypokalemia; D50.0 Iron deficiency anemia secondary to blood loss (chronic); N40.0 Benign prostatic hyperplasia without lower urinary tract symptoms; Z68.21 Body mass index [BMI] 21.0-21.9, adult; Z22.322 Carrier or suspected carrier of Methicillin resistant Staphylococcus aureus; I50.9 Heart failure, unspecified; N40.1 Benign prostatic hyperplasia with lower urinary tract symptoms; R40.2433 Glasgow coma scale score 3-8, at hospital admission; Z91.81 History of falling
CPT/HCPCS: 31720; 36415; 36600; 70450-TC; 71045-TC; 74018; 74150-TC; 76770-TC; 80048-TC; 80053-TC; 80061-TC; 80076-TC; 80162-TC; 80202-TC; 81000-TC; 82272-TC; 82550-TC; 82803-TC; 82962-TC; 83605-TC; 83735-TC; 83970; 84100-TC; 84155; 84165; 84484-TC; 85025-TC; 85730-TC; 87040-TC; 87081-TC; 87086-TC; 93307-TC; 93970-TC; 94660; 94762-TC; 94799-TC; A4217; A4624; A6253; A6403; G0378; J1160; J1815; J2185; J2270; J2274; J2370; J2543; J3370; J3490; J7030; J7040; J7050; J7060; J7070; Q9963